=== PATIENT | male | born 1970 | race Caucasian/White ===

== ENCOUNTER → 2018-03-07 | Outpatient (CLI) | payer OTHER | LOC: LAB.O 13:47 | PROVIDERS: ATTEND Family Medicine | DX: Z21 Asymptomatic human immunodeficiency virus [HIV] infection status (principal) ==

== ENCOUNTER → 2018-03-13 | Outpatient (CLI) | payer OTHER | LOC: YCFC.O 09:18 | PROVIDERS: ATTEND Family Medicine | DX: Z21 Asymptomatic human immunodeficiency virus [HIV] infection status (principal) ==

== ENCOUNTER → 2018-12-12 | Outpatient (CLI) | payer OTHER | LOC: LAB.O 12:43 | PROVIDERS: ATTEND Nurse Practitioner Family | DX: R73.9 Hyperglycemia, unspecified (principal) ==

== ENCOUNTER → 2018-12-15 | Outpatient (CLI) | payer OTHER | LOC: LAB.O 12:11 | PROVIDERS: ATTEND Nurse Practitioner Family | DX: Z13.818 Encounter for screening for other digestive system disorders (principal) ==

== ENCOUNTER → 2018-12-22 | Outpatient (CLI) | payer OTHER | LOC: LAB.O 12:04 | PROVIDERS: ATTEND Nurse Practitioner Family | DX: R79.9 Abnormal finding of blood chemistry, unspecified (principal) ==